=== PATIENT | female | born 1970 | race Caucasian/White ===

== ENCOUNTER → 2019-01-16 | Outpatient (REF) | payer BC ==
[2019-01-16 18:36] LABS: HEMATOCRIT 35.6 % (36.0-47.0)
== END ==
LOC: M LAB REF 17:20
PROVIDERS: ATTEND Nurse Practitioner Adult Health
DX: D64.9 Anemia, unspecified (principal)

== ENCOUNTER → 2020-03-14 | Emergency (ER) | payer BC ==
--- NOTE | 2020-05-03 13:56 | REP ---
CT OF THE HEAD WITHOUT CONTRAST: HISTORY: Headache and dizziness with injury. TECHNIQUE: Axial noncontrast images from the skull base to the vertex with coronal reformations. FINDINGS: The ventricles, sulci and cisterns are symmetric and normal. Cooper-white differentiation is maintained. No acute intracranial hemorrhage, mass or mass effect. No extra-axial fluid collections are identified. The calvarium is intact. The paranasal sinuses and mastoid air cells are clear. IMPRESSION: Negative noncontrast head CT. No evidence for acute intracranial pathology or trauma/injury. MTDD
== END | disposition home or self-care (01) ==
LOC: M ED 13:30
DX: S00.01XA Abrasion of scalp, initial encounter (principal); W22.8XXA Striking against or struck by other objects, initial encounter; Y92.009 Unspecified place in unspecified non-institutional (private) residence as the place of occurrence of the external cause; Y93.9 Activity, unspecified; Y99.9 Unspecified external cause status; R22.0 Localized swelling, mass and lump, head